=== PATIENT | female | born 1940 | race Caucasian/White ===

== ENCOUNTER 2017-07-01 17:06 | Inpatient (IN) | payer MEDICARE ==
[2017-07-01] MEDS ORDERED: Sodium Chloride 0.9% 10 ML Syringe FLUSH PRN (17:34)
[2017-07-01] MEDS ORDERED: Aspirin 81 MG Tab.Chew PO ONE (17:35)
--- NOTE | 2017-07-01 17:36 | EDM.PDOC ---
ED HPI GENERAL MEDICAL PROBLEM - General Chief Complaint: Chest Pain Stated Complaint: CHEST & LOWER BACK PAIN Time Seen by Provider: 07/01/17 17:30 Source of Information: Reports: Patient, Family History Limitations: Reports: Other (dementia) - History of Present Illness INITIAL COMMENTS - FREE TEXT/NARRATIVE: Yeny presents today with complaints of chest pain and low back pain all of a sudden while going for a walk and arriving at home today around 1500. Chest Pain Score (Numeric/FACES): 8 - Related Data Allergies Allergy/AdvReac Type Severity Reaction Status Date / Time No Known Allergies Allergy Verified 07/01/17 17:19 Home Meds: Home Meds Aspirin [Halfprin] 81 mg PO DAILY 07/01/17 [History] Ca Carbonate/Vitamin D3/Vit K [Calcium + D Soft Chewable Tab] 1 tab PO DAILY [History] Calcium Carb & Citrate/Vit D3 [Citracal + D ER] 1 tab PO DAILY 07/01/17 [History ] Cholecalciferol (Vitamin D3) [Vitamin D3] 1,000 unit PO DAILY 07/01/17 [History] Lisinopril [Lisinopril] 10 mg PO DAILY 07/01/17 [History] Magnesium Oxide 400 mg PO DAILY 07/01/17 [History] Memantine HCl [Memantine HCl] 10 mg PO BID 07/01/17 [History] Raloxifene [Evista] 60 mg PO DAILY 07/01/17 [History] atorvaSTATin Calcium [Atorvastatin Calcium] 80 mg PO BEDTIME 07/01/17 [History] Past Medical History HEENT History: Reports: Impaired Vision Cardiovascular History: Reports: High Cholesterol, Hypertension 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: Musculoskeletal History: Reports: Osteoporosis Neurological History: Reports: Migraines Psychiatric History: Reports: Dementia - Infectious Disease History Infectious Disease History: Reports: Chicken Pox, Measles, Mumps, Shingles - Past Surgical History Oncologic Surgical History: Reports: Lumpectomy Other Oncologic Surgeries/Procedures: left lumpectomy Social & Family History - Tobacco Use Smoking Status *Q: Never Smoker - Caffeine Use Caffeine Use: Reports: Coffee - Recreational Drug Use Recreational Drug Use: No ED ROS GENERAL - Review of Systems Review Of Systems: See Below Constitutional: Denies: Fever, Chills, Malaise, Weakness HEENT: Reports: No Symptoms Respiratory: Denies: Shortness of Breath, Wheezing, Cough, Sputum, Hemoptysis Cardiovascular: Reports: Chest Pain, Dyspnea on Exertion. Denies: Edema, Lightheadedness, Palpitations, PND, Syncope Endocrine: Reports: No Symptoms GI/Abdominal: Reports: No Symptoms : Reports: No Symptoms Musculoskeletal: Denies: Joint Pain, Joint Swelling, Muscle Pain, Muscle Stiffness Skin: Reports: No Symptoms Neurological: Reports: Other (She does have a history of dementia according to her . ). Denies: Confusion, Numbness Psychiatric: Reports: No Symptoms Hematologic/Lymphatic: Reports: No Symptoms Immunologic: Reports: No Symptoms ED EXAM, GENERAL - Physical Exam Exam: See Below Free Text/Narrative:: Yeny presents today with complaints of acute chest pain after going for a walk with her . She reports going for a walk with her and developing sudden chest pain at 1500. She went into the house and sat down, the chest pain resolved. Her then brought her to the ER. Exam Limited By: No Limitations General Appearance: Alert, WD/WN, No Apparent Distress Eye Exam: Bilateral Eye: EOMI, Normal Inspection, PERRL Ears: Normal External Exam, Normal Canal, Hearing Grossly Normal, Normal TMs Ear Exam: Bilateral Ear: Auricle Normal, Canal Normal, TM normal Nose: Normal Inspection Throat/Mouth: Normal Inspection, Normal Lips, Normal Oropharynx, Normal Voice, No Airway Compromise Head: Atraumatic, Normocephalic Neck: Normal Inspection, Supple, Non-Tender, Full Range of Motion. No: Lymphadenopathy (R), Lymphadenopathy (L) Respiratory/Chest: No Respiratory Distress, Lungs Clear, Normal Breath Sounds, No Accessory Muscle Use, Chest Non-Tender Cardiovascular: Normal Peripheral Pulses, Regular Rate, Rhythm, No Edema, No Murmur Peripheral Pulses: 2+: Radial (L), Radial (R), Dorsalis Pedis (L), Dorsalis Pedis (R) GI/Abdominal: Normal Bowel Sounds, Soft, Non-Tender, No Distention, No Mass Back Exam: Normal Inspection, Full Range of Motion. No: CVA Tenderness (R), CVA Tenderness (L) Extremities: Normal Inspection, Normal Range of Motion, Non-Tender, No Pedal Edema, Normal Capillary Refill Neurological: Alert, CN II-XII Intact, Normal Gait, Normal Reflexes, No Motor/ Sensory Deficits, Memory Loss Recent Events, Other (history of dementia, alert to self and situation, not date or time. ) Psychiatric: Normal Affect, Normal Mood, Other (Cooperative) Skin Exam: Warm, Dry, Intact, No Rash, Other (flushed to the face) Lymphatic: No Adenopathy Course - Vital Signs Last Recorded V/S: Last Vital Signs Temp 38.0 C 07/01/17 17:25 Pulse 83 07/01/17 22:28 Resp 17 07/01/17 22:28 BP 175/89 H 07/01/17 22:28 Pulse Ox 95 07/01/17 22:28 - Orders/Labs/Meds Orders: Active Orders 24 hr Category Date Time Status EKG Documentation Completion [RC] ASDIRECTED Care 07/01/17 17:34 Active Ang Chest [CT] Stat Exams 07/01/17 19:11 Taken Chest 1V Frontal [CR] Stat Exams 07/01/17 17:34 Taken LACTIC ACID [CHEM] Stat Lab 07/01/17 22:15 Ordered Iopamidol [Isovue-370 (76%)] Med 07/01/17 19:30 Active 100 ml IV . DIRECTED Sodium Chloride 0.9% [Normal Saline] 100 ml Med 07/01/17 19:30 Active IV ASDIRECTED Sodium Chloride 0.9% [Saline Flush] Med 07/01/17 17:34 Active 10 ml FLUSH ASDIRECTED PRN Saline Lock Insert [OM.PC] Routine Oth 07/01/17 17:34 Ordered EKG 12 Lead [EK] Routine Ther 07/01/17 17:34 Ordered Medication Orders Sodium Chloride (Normal Saline) 100 mls @ 3.5 mls/sec IV ASDIRECTED NATACHA Last Admin: 07/01/17 19:47 Dose: 4 mls/sec Iopamidol (Isovue-370 (76%)) 100 ml IV . DIRECTED NATACHA Last Admin: 07/01/17 19:47 Dose: 100 ml Sodium Chloride (Saline Flush) 10 ml FLUSH ASDIRECTED PRN PRN Reason: Keep Vein Open Last Admin: 07/01/17 17:40 Dose: 10 ml Labs: Laboratory Tests 07/01/17 07/01/17 07/01/17 Range/Units 17:46 17:46 18:28 WBC 19.0 H (4.5-11.0) K/uL RBC 4.69 (3.30-5.50) M/uL Hgb 12.9 (12.0-15.0) g/dL Hct 39.7 (36.0-48.0) % MCV 85 (80-98) fL MCH 28 (27-31) pg MCHC 33 (32-36) % Plt Count 300 (150-400) K/uL Neut % (Auto) 83 H (36-66) % Lymph % (Auto) 10 L (24-44) % [place] % (Auto) 7 H (2-6) % Eos % (Auto) 0 L (2-4) % Baso % (Auto) 0 (0-1) % D-Dimer, Quantitative 497 H (0.0-400.0) ng/mL Sodium 137 L (140-148) mmol/L Potassium 3.8 (3.6-5.2) mmol/L Chloride 103 (100-108) mmol/L Carbon Dioxide 22 (21-32) mmol/L Anion Gap 15.8 H (5.0-14.0) mmol/L BUN 20 H (7-18) mg/dL Creatinine 0.8 (0.6-1.0) mg/dL Est Cr Clr Drug Dosing 56.00 mL/min Estimated GFR (MDRD) > 60 (>60) Glucose 128 H (74-106) mg/dL Calcium 8.3 L (8.5-10.1) mg/dL Total Bilirubin 0.8 (0.2-1.0) mg/dL AST 26 (15-37) U/L ALT 33 (12-78) U/L Alkaline Phosphatase 81 (46-116) U/L Troponin I 0.039 (0.000-0.056) ng/mL Total Protein 6.9 (6.4-8.2) g/dL Albumin 3.7 (3.4-5.0) g/dL Globulin 3.2 (2.3-3.5) g/dL Albumin/Globulin Ratio 1.2 (1.2-2.2) Urine Color Urine Appearance Urine pH (4.5-8.0) Ur Specific [place] (1.008-1.030) Urine Protein (NEGATIVE) mg/dL Urine Glucose (UA) (NEGATIVE) mg/dL Urine Ketones (NEGATIVE) mg/dL Urine Occult Blood (NEGATIVE) Urine Nitrite (NEGATIVE) Urine Bilirubin (NEGATIVE) Urine Urobilinogen (NORMAL) mg/dL Ur Leukocyte Esterase (NEGATIVE) Urine RBC (0-5) Urine WBC (0-5) Ur Epithelial Cells Amorphous Sediment Urine Bacteria Urine Mucus 07/01/17 07/01/17 Range/Units 18:38 21:05 WBC (4.5-11.0) K/uL RBC (3.30-5.50) M/uL Hgb (12.0-15.0) g/dL Hct (36.0-48.0) % MCV (80-98) fL MCH (27-31) pg MCHC (32-36) % Plt Count (150-400) K/uL Neut % (Auto) (36-66) % Lymph % (Auto) (24-44) % [place] % (Auto) (2-6) % Eos % (Auto) (2-4) % Baso % (Auto) (0-1) % D-Dimer, Quantitative (0.0-400.0) ng/mL Sodium (140-148) mmol/L Potassium (3.6-5.2) mmol/L Chloride (100-108) mmol/L Carbon Dioxide (21-32) mmol/L Anion Gap (5.0-14.0) mmol/L BUN (7-18) mg/dL Creatinine (0.6-1.0) mg/dL Est Cr Clr Drug Dosing mL/min Estimated GFR (MDRD) (>60) Glucose (74-106) mg/dL Calcium (8.5-10.1) mg/dL Total Bilirubin (0.2-1.0) mg/dL AST (15-37) U/L ALT (12-78) U/L Alkaline Phosphatase (46-116) U/L Troponin I 0.046 (0.000-0.056) ng/mL Total Protein (6.4-8.2) g/dL Albumin (3.4-5.0) g/dL Globulin (2.3-3.5) g/dL Albumin/Globulin Ratio (1.2-2.2) Urine Color Yellow Urine Appearance Clear Urine pH 6.5 (4.5-8.0) Ur Specific [place] 1.010 (1.008-1.030) Urine Protein Negative (NEGATIVE) mg/dL Urine Glucose (UA) Normal (NEGATIVE) mg/dL Urine Ketones Negative (NEGATIVE) mg/dL Urine Occult Blood Negative (NEGATIVE) Urine Nitrite Negative (NEGATIVE) Urine Bilirubin Negative (NEGATIVE) Urine Urobilinogen Normal (NORMAL) mg/dL Ur Leukocyte Esterase Negative (NEGATIVE) Urine RBC 0-5 (0-5) Urine WBC 5-10 H (0-5) Ur Epithelial Cells Rare Amorphous Sediment Few Urine Bacteria Rare Urine Mucus Few Lab work reviewed. Will complete d-dimer, if positive will do CT. Patient and her in agreement with plan. Meds: Medications Generic Name Dose Route Start Last Admin Trade Name Freq PRN Reason Stop Dose Admin Sodium Chloride 100 mls @ 3.5 mls/sec 07/01/17 19:30 07/01/17 19:47 Normal Saline IV 4 mls/sec ASDIRECTED NATACHA Administration Iopamidol 100 ml 07/01/17 19:30 07/01/17 19:47 Isovue-370 (76%) IV 100 ml . DIRECTED NATACHA Administration Sodium Chloride 10 ml 07/01/17 17:34 07/01/17 17:40 Saline Flush FLUSH 10 ml ASDIRECTED PRN Administration Keep Vein Open Discontinued Medications Generic Name Dose Route Start Last Admin Trade Name Freq PRN Reason Stop Dose Admin Aspirin 324 mg 07/01/17 17:35 07/01/17 17:38 Aspirin PO 07/01/17 17:36 324 mg ONETIME ONE Administration Aspirin Confirm 07/01/17 17:40 07/01/17 18:55 Aspirin Administered 07/01/17 17:41 Not Given Dose 81 mg .ROUTE .[facility] - Radiology Interpretation Free Text/Narrative:: Chest x-ray reviewed, wet read, no acute findings. CT Results Date: 07/01/17 (No pulmonary embolism or other acute intrathoracic abnormality identified. 1.3cm left lung nodule in the lingula. Follow up per Fleischner Society guidelines suggested. ) - Re-Assessments/Exams Free Text/Narrative Re-Assessment/Exam: 07/01/17 19:12 D-dimer elevated, will complete CT of chest with PE protocol. Patient and her in agreement with plan. 07/01/17 21:06 Patient and her provided CT report results, will complete second troponin. 07/01/17 21:56 Repeat troponin 0.046, will discuss case with Dr. Mon. Patient and her notified. 07/01/17 22:[address] Mon, patient will be admitted for atypical chest pain , leukocytosis Departure - Departure Time of Disposition: 22:40 Disposition: Admitted As Inpatient 67 Condition: Fair Clinical Impression: Atypical chest pain, Leukocytosis Referrals: Alexandru Perez MD [Primary Care Provider] - Forms: ED Department Discharge - My Orders Last 24 Hours: My Active Orders 07/01/17 17:34 EKG Documentation Completion [RC] ASDIRECTED Chest 1V Frontal [CR] Stat Sodium Chloride 0.9% [Saline Flush] 10 ml FLUSH ASDIRECTED PRN Saline Lock Insert [OM.PC] Routine EKG 12 Lead [EK] Routine 07/01/17 19:11 Ang Chest [CT] Stat 07/01/17 19:30 Iopamidol [Isovue-370 (76%)] 100 ml IV . DIRECTED Sodium Chloride 0.9% [Normal Saline] 100 ml IV ASDIRECTED 07/01/17 22:15 LACTIC ACID [CHEM] Stat - Assessment/Plan Last 24 Hours: My Active Orders 07/01/17 17:34 EKG Documentation Completion [RC] ASDIRECTED Chest 1V Frontal [CR] Stat Sodium Chloride 0.9% [Saline Flush] 10 ml FLUSH ASDIRECTED PRN Saline Lock Insert [OM.PC] Routine EKG 12 Lead [EK] Routine 07/01/17 19:11 Ang Chest [CT] Stat 07/01/17 19:30 Iopamidol [Isovue-370 (76%)] 100 ml IV . DIRECTED Sodium Chloride 0.9% [Normal Saline] 100 ml IV ASDIRECTED 07/01/17 22:15 LACTIC ACID [CHEM] Stat
[2017-07-01] MEDS ORDERED: Aspirin 81 MG Tab.Chew ONE (17:40)
[2017-07-01] MEDS ORDERED: Sodium Chloride 0.9% 100 ML IV SCH (19:30)
[2017-07-01] MEDS ORDERED: Iopamidol 755 Mg/ML 100 ML Bottle IV SCH (19:30)
--- NOTE | 2017-07-01 22:54 | PCM.HP ---
H&P History of Present Illness - General Date of Service: 07/01/17 Source of Information: Patient, EMS, Family History Limitations: Reports: No Limitations - History of Present Illness Initial Comments - Free Text/Narative: 77-year-old female with past medical history of hypertension, hyperlipidemia, Alzheimer's disease, previous history of breast cancer, hypomagnesemia came to the clinic with a complaining of chest pain. Patient reports that chest pain started around 3:30 PM and lasted for 2 hours. Patient reports that pain is squeezing type 3-4/10 in intensity no radiation, decreased with rest increases with activity. Patient came to the ED and received aspirin 325 mg which subsided the chest pain. Patient denies any previous history of CAD. Patient recently had a office visit with PCP and her blood pressure medication lisinopril increased with the concerns of high blood pressure and received steroid knee injection for chronic left knee osteoarthritis. Patient denies any complications of steroid injection. Patient denies any recent fever, sick contacts. Patient denies any dyspepsia, heartburn, acid reflex and no changes in the medication. Patient at present denies any chest pain. Denies any previous history of blood clots. Patient lab workup showed a WBC elevated with a lactic acid 2.2. Patient to CT chest did not show any embolism and no infective signs are noted. Patient is a full code. Patient received IV fluid supplementation and aspirin in the ED. Denies any skin rash, morning stiffness, other joint pains. Patient denies any recent tick bites. Other review of systems are not significant Chest Pain Score (Numeric/FACES): 8 - Related Data Allergies/Adverse Reactions: Allergies Allergy/AdvReac Type Severity Reaction Status Date / Time No Known Allergies Allergy Verified 07/01/17 17:19 Home Medications: Home Meds Aspirin [Halfprin] 81 mg PO DAILY 07/01/17 [History] Ca Carbonate/Vitamin D3/Vit K [Calcium + D Soft Chewable Tab] 1 tab PO DAILY [History] Calcium Carb & Citrate/Vit D3 [Citracal + D ER] 1 tab PO DAILY 07/01/17 [History ] Cholecalciferol (Vitamin D3) [Vitamin D3] 1,000 unit PO DAILY 07/01/17 [History] Lisinopril [Lisinopril] 10 mg PO DAILY 07/01/17 [History] Magnesium Oxide 400 mg PO DAILY 07/01/17 [History] Memantine HCl [Memantine HCl] 10 mg PO BID 07/01/17 [History] Raloxifene [Evista] 60 mg PO DAILY 07/01/17 [History] atorvaSTATin Calcium [Atorvastatin Calcium] 80 mg PO BEDTIME 07/01/17 [History] Past Medical History HEENT History: Reports: Impaired Vision Cardiovascular History: Reports: High Cholesterol, Hypertension 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: Musculoskeletal History: Reports: Osteoporosis Neurological History: Reports: Migraines Psychiatric History: Reports: Dementia - Infectious Disease History Infectious Disease History: Reports: Chicken Pox, Measles, Mumps, Shingles - Past Surgical History Oncologic Surgical History: Reports: Lumpectomy Other Oncologic Surgeries/Procedures: left lumpectomy Social & Family History - Tobacco Use Smoking Status *Q: Never Smoker - Caffeine Use Caffeine Use: Reports: Coffee - Recreational Drug Use Recreational Drug Use: No H&P Review of Systems - Review of Systems: Review Of Systems: See Below General: Denies: Fever, Chills, Malaise HEENT: Denies: Contact Lenses, Dysphasia Pulmonary: Denies: Shortness of Breath, Wheezing, Pleuritic Chest Pain, Cough, Sputum, Hemoptysis Cardiovascular: Reports: Chest Pain. Denies: Palpitations, Dyspnea on Exertion , Orthopnea, PND, Edema, Lightheadedness, Syncope, Claudication, Blood Pressure Problem Gastrointestinal: Denies: Abdominal Pain, Anorexia, Black Stool Genitourinary: Denies: Dysuria, Frequency, Burning Musculoskeletal: Denies: Neck Pain, Shoulder Pain, Arm Pain Skin: Denies: Cyanosis, Jaundice Psychiatric: Denies: Confusion, Depression, Mood Lability Neurological: Denies: Confusion, Dizziness, Headache Hematologic/Lymphatic: Denies: Anemia, Easy Bleeding Exam - Exam Exam: See Below - Vital Signs Vital Signs: Last Vital Signs Temp 38.0 C 07/01/17 17:25 Pulse 83 07/01/17 22:28 Resp 17 07/01/17 22:28 BP 175/89 H 07/01/17 22:28 Pulse Ox 95 07/01/17 22:28 Weight: 80.286 kg - Exam General: Alert, Oriented HEENT: PERRLA, Conjunctiva Clear Neck: Supple, Trachea Midline Lungs: Clear to Auscultation, Normal Respiratory Effort. No: Decreased Breath Sounds Cardiovascular: Regular Rate, Regular Rhythm GI/Abdominal Exam: Normal Bowel Sounds, Soft, Non-Tender, No Organomegaly Extremities: Normal Inspection, Normal Range of Motion, Non-Tender, No Pedal Edema. No: Pedal Edema, Joint Swelling, Arm Pain Skin: Warm, Dry, Intact Neuro Extensive - Mental Status: Alert, Oriented x3 - Patient Data Lab Results Last 24 hrs: Laboratory Results - last 24 hr 07/01/17 07/01/17 07/01/17 Range/Units 17:46 17:46 18:28 WBC 19.0 H (4.5-11.0) K/uL RBC 4.69 (3.30-5.50) M/uL Hgb 12.9 (12.0-15.0) g/dL Hct 39.7 (36.0-48.0) % MCV 85 (80-98) fL MCH 28 (27-31) pg MCHC 33 (32-36) % Plt Count 300 (150-400) K/uL Neut % (Auto) 83 H (36-66) % Lymph % (Auto) 10 L (24-44) % [place] % (Auto) 7 H (2-6) % Eos % (Auto) 0 L (2-4) % Baso % (Auto) 0 (0-1) % D-Dimer, Quantitative 497 H (0.0-400.0) ng/mL Sodium 137 L (140-148) mmol/L Potassium 3.8 (3.6-5.2) mmol/L Chloride 103 (100-108) mmol/L Carbon Dioxide 22 (21-32) mmol/L Anion Gap 15.8 H (5.0-14.0) mmol/L BUN 20 H (7-18) mg/dL Creatinine 0.8 (0.6-1.0) mg/dL Est Cr Clr Drug Dosing 56.00 mL/min Estimated GFR (MDRD) > 60 (>60) Glucose 128 H (74-106) mg/dL Lactic Acid (0.4-2.0) mmol/L Calcium 8.3 L (8.5-10.1) mg/dL Total Bilirubin 0.8 (0.2-1.0) mg/dL AST 26 (15-37) U/L ALT 33 (12-78) U/L Alkaline Phosphatase 81 (46-116) U/L Troponin I 0.039 (0.000-0.056) ng/mL Total Protein 6.9 (6.4-8.2) g/dL Albumin 3.7 (3.4-5.0) g/dL Globulin 3.2 (2.3-3.5) g/dL Albumin/Globulin Ratio 1.2 (1.2-2.2) Urine Color Urine Appearance Urine pH (4.5-8.0) Ur Specific [place] (1.008-1.030) Urine Protein (NEGATIVE) mg/dL Urine Glucose (UA) (NEGATIVE) mg/dL Urine Ketones (NEGATIVE) mg/dL Urine Occult Blood (NEGATIVE) Urine Nitrite (NEGATIVE) Urine Bilirubin (NEGATIVE) Urine Urobilinogen (NORMAL) mg/dL Ur Leukocyte Esterase (NEGATIVE) Urine RBC (0-5) Urine WBC (0-5) Ur Epithelial Cells Amorphous Sediment Urine Bacteria Urine Mucus 07/01/17 07/01/17 07/01/17 Range/Units 18:38 21:05 22:15 WBC (4.5-11.0) K/uL RBC (3.30-5.50) M/uL Hgb (12.0-15.0) g/dL Hct (36.0-48.0) % MCV (80-98) fL MCH (27-31) pg MCHC (32-36) % Plt Count (150-400) K/uL Neut % (Auto) (36-66) % Lymph % (Auto) (24-44) % [place] % (Auto) (2-6) % Eos % (Auto) (2-4) % Baso % (Auto) (0-1) % D-Dimer, Quantitative (0.0-400.0) ng/mL Sodium (140-148) mmol/L Potassium (3.6-5.2) mmol/L Chloride (100-108) mmol/L Carbon Dioxide (21-32) mmol/L Anion Gap (5.0-14.0) mmol/L BUN (7-18) mg/dL Creatinine (0.6-1.0) mg/dL Est Cr Clr Drug Dosing mL/min Estimated GFR (MDRD) (>60) Glucose (74-106) mg/dL Lactic Acid 2.2 H (0.4-2.0) mmol/L Calcium (8.5-10.1) mg/dL Total Bilirubin (0.2-1.0) mg/dL AST (15-37) U/L ALT (12-78) U/L Alkaline Phosphatase (46-116) U/L Troponin I 0.046 (0.000-0.056) ng/mL Total Protein (6.4-8.2) g/dL Albumin (3.4-5.0) g/dL Globulin (2.3-3.5) g/dL Albumin/Globulin Ratio (1.2-2.2) Urine Color Yellow Urine Appearance Clear Urine pH 6.5 (4.5-8.0) Ur Specific [place] 1.010 (1.008-1.030) Urine Protein Negative (NEGATIVE) mg/dL Urine Glucose (UA) Normal (NEGATIVE) mg/dL Urine Ketones Negative (NEGATIVE) mg/dL Urine Occult Blood Negative (NEGATIVE) Urine Nitrite Negative (NEGATIVE) Urine Bilirubin Negative (NEGATIVE) Urine Urobilinogen Normal (NORMAL) mg/dL Ur Leukocyte Esterase Negative (NEGATIVE) Urine RBC 0-5 (0-5) Urine WBC 5-10 H (0-5) Ur Epithelial Cells Rare Amorphous Sediment Few Urine Bacteria Rare Urine Mucus Few Result Diagrams: 07/02/17 05:55 07/02/17 05:55 *Q Meaningful Use (ADM) - VTE *Q VTE Criteria *Q: - Stroke *Q Stroke Criteria *Q: - AMI *Q AMI Criteria *Q: - Problem List (1) Elevated lactic acid level SNOMED Code(s): 2054542 ICD Code: R79.89 - OTHER SPECIFIED ABNORMAL FINDINGS OF BLOOD CHEMISTRY Status: Acute Current Visit: Yes (2) Hyperlipemia SNOMED Code(s): 01178225 ICD Code: E78.5 - HYPERLIPIDEMIA, UNSPECIFIED Status: Acute Current Visit : Yes (3) Alzheimer disease SNOMED Code(s): 93414236 ICD Code: G30.9 - ALZHEIMER'S DISEASE, UNSPECIFIED Status: Acute Current Visit: Yes (4) Hypomagnesemia SNOMED Code(s): 036733486 ICD Code: E83.42 - HYPOMAGNESEMIA Status: Acute Current Visit: Yes (5) Atypical chest pain SNOMED Code(s): 364317621 ICD Code: R07.89 - OTHER CHEST PAIN Status: Acute Current Visit: Yes (6) Leukocytosis SNOMED Code(s): 234979821 ICD Code: D72.829 - ELEVATED WHITE BLOOD CELL COUNT, UNSPECIFIED Status: Acute Current Visit: Yes (7) Essential hypertension SNOMED Code(s): 95661337 ICD Code: I10 - ESSENTIAL (PRIMARY) HYPERTENSION Status: Chronic Current Visit: No Problem List Initiated/Reviewed/Updated: Yes Orders Last 24hrs: Active Orders 24 hr Category Date Time Status EKG Documentation Completion [RC] ASDIRECTED Care 07/01/17 17:34 Active Ang Chest [CT] Stat Exams 07/01/17 19:11 Taken Chest 1V Frontal [CR] Stat Exams 07/01/17 17:34 Taken Iopamidol [Isovue-370 (76%)] Med 07/01/17 19:30 Active 100 ml IV . DIRECTED Sodium Chloride 0.9% [Normal Saline] 100 ml Med 07/01/17 19:30 Active IV ASDIRECTED Sodium Chloride 0.9% [Saline Flush] Med 07/01/17 17:34 Active 10 ml FLUSH ASDIRECTED PRN Saline Lock Insert [OM.PC] Routine Oth 07/01/17 17:34 Ordered EKG 12 Lead [EK] Routine Ther 07/01/17 17:34 Ordered Medication Orders Sodium Chloride (Normal Saline) 100 mls @ 3.5 mls/sec IV ASDIRECTED NATACHA Last Admin: 07/01/17 19:47 Dose: 4 mls/sec Iopamidol (Isovue-370 (76%)) 100 ml IV . DIRECTED NATACHA Last Admin: 07/01/17 19:47 Dose: 100 ml Sodium Chloride (Saline Flush) 10 ml FLUSH ASDIRECTED PRN PRN Reason: Keep Vein Open Last Admin: 07/01/17 17:40 Dose: 10 ml Assessment/Plan Comment:: 77-year-old female with past medical history of hypertension, hyperlipidemia, Alzheimer's disease, hypomagnesemia came to the ED with a complaining of chest pain. Patient WBC count and lactic acid is elevated and treated with levofloxacin antibiotics and admitted to the hospital for further management (1) Elevated lactic acid level (5) Atypical chest pain (6) Leukocytosis Patient came with a complaint of chest pain, atypical, unknown etiology. 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
[2017-07-01] MEDS ORDERED: Promethazine 25 MG Tab PO PRN (23:18)
[2017-07-01] MEDS ORDERED: Acetaminophen/HYDROcodone 325-5 MG Tab PO PRN (23:18)
[2017-07-01] MEDS ORDERED: Levofloxacin/Dextrose 5%-Water 750 MG in Premix Bag 1 BAG IV SCH (23:30)
[2017-07-02] MEDS: Acetaminophen 325 MG Tab PO PRN ×2 (00:34→11:15)
[2017-07-02] MEDS ORDERED: Enoxaparin 40 MG/0.4 ML Syringe SUBCUT SCH (09:00)
--- NOTE | 2017-07-02 09:36 | CR ---
Chest 1V Frontal FINDINGS: The heart and vascular structures are normal in appearance. No infiltrates or effusions are demonstrated. The skeletal structures are unremarkable. IMPRESSION: Negative exam.
--- NOTE | 2017-07-02 12:35 | PCM.DCSUM1 ---
Discharge Summary - Hospital Course Brief History: 77-year-old female with history of hypertension and mild dementia who presented with chest pain and back pain and was admitted for workup /management after workup revealed leukocytosis and mild elevation of lactic acid. - Discharge Data Discharge Date: 07/02/17 Discharge Disposition: Home, Self-Care 01 Condition: Good - Discharge Diagnosis/Problem(s) (1) Atypical chest pain SNOMED Code(s): 217094242 ICD Code: R07.89 - OTHER CHEST PAIN Status: Acute (2) Leukocytosis SNOMED Code(s): 398382221 ICD Code: D72.829 - ELEVATED WHITE BLOOD CELL COUNT, UNSPECIFIED Status: Acute Qualifiers: Leukocytosis type: unspecified Qualified Code(s): D72.829 - Elevated white blood cell count, unspecified - Patient Summary/Data Hospital Course: Yeny presented to the emergency room with chest tightness and upper back pain. Workup in the emergency room was reassuring including troponin, EKG and additional laboratory work though white blood cell count was elevated at 19, 000. She was admitted overnight for further workup and management. Serial troponin levels were in the normal range. Chest x-ray and CT pulmonary angiogram in the emergency room were unremarkable. She has been symptom-free overnight. No abnormalities were noted on telemetry. The morning after admission she remains pain-free and a third troponin level remains normal. She feels well and like she is back to her usual self. She was able to ambulate more than 300 feet with physical therapy and did not develop any chest pain or tightness. She was able to climb up and down stairs without any difficulty. Her white blood cell count has improved and is down to 15,000 today. The exact cause for her pain is not entirely clear at this point. Bronchospasm or possibly a powerful thoracic muscle spasm could be considered. She has no pain at this time. Her vital signs have all been stable. The description of her pain in the story seemed very atypical for cardiac pain. She is a low risk patient for a cardiac issues. This point we have elected to forego any further testing unless she has recurrence of her symptoms. She will be discharged home with her . She was advised to seek medical attention if she has additional episodes of pain. - Patient Instructions Diet: Regular Diet as Tolerated Activity: As Tolerated Showering/Bathing: May Shower Notify Provider of: Fever, Increased Pain Other/Special Instructions: 1. You were in the hospital for management of atypical chest pain. There was no evidence of heart attack or blood clot in the lungs. I suspect the pain was possibly caused by a severe muscle spasm or possibly bronchospasm. At this point symptoms have completely resolved and workup in the hospital was unremarkable. I do not recommend any specific follow- up at this time but if symptoms return I would recommend additional evaluation. 2. Please continue your usual medications as previously prescribed. 3. Seek medical attention if you develop fever greater than 101, have return of your severe pain or you develop sudden onset of shortness of breath/difficulty breathing. - Discharge Plan Home Medications: Home Meds Aspirin [Halfprin] 81 mg PO DAILY 07/01/17 [History] Ca Carbonate/Vitamin D3/Vit K [Calcium + D Soft Chewable Tab] 1 tab PO DAILY [History] Calcium Carb & Citrate/Vit D3 [Citracal + D ER] 1 tab PO DAILY 07/01/17 [History ] Cholecalciferol (Vitamin D3) [Vitamin D3] 1,000 unit PO DAILY 07/01/17 [History] Lisinopril 10 mg PO DAILY 07/01/17 [History] Magnesium Oxide 400 mg PO DAILY 07/01/17 [History] Memantine HCl 10 mg PO BID 07/01/17 [History] Raloxifene [Evista] 60 mg PO DAILY 07/01/17 [History] atorvaSTATin Calcium [Atorvastatin Calcium] 80 mg PO BEDTIME 07/01/17 [History] Patient Handouts: Nonspecific Chest Pain, [id number] Referrals: Alexandru Perez MD [Primary Care Provider] - (f/u if symptoms return) - Patient Data Vitals - Most Recent: Last Vital Signs Temp 37.3 C 07/02/17 08:00 Pulse 99 07/02/17 10:00 Resp 20 07/02/17 10:00 BP 169/78 H 07/02/17 10:00 Pulse Ox 97 07/02/17 10:00 Weight - Most Recent: 80 kg I&O - Last 24 hours: Intake & Output 07/01/17 07/02/17 07/02/17 22:59 06:59 14:59 Intake Total 150 Output Total 600 750 Balance -450 -750 Lab Results - Last 24 hrs: Laboratory Results - last 24 hr 07/02/17 07/02/17 07/02/17 Range/Units 05:52 05:55 05:55 WBC 15.2 H (4.5-11.0) K/uL RBC 4.67 (3.30-5.50) M/uL Hgb 12.6 (12.0-15.0) g/dL Hct 39.2 (36.0-48.0) % MCV 84 (80-98) fL MCH 27 (27-31) pg MCHC 32 (32-36) % Plt Count 278 (150-400) K/uL Neut % (Auto) 79 H (36-66) % Lymph % (Auto) 13 L (24-44) % Barry % (Auto) 8 H (2-6) % Eos % (Auto) 0 L (2-4) % Baso % (Auto) 0 (0-1) % Sodium 141 (140-148) mmol/L Potassium 3.7 (3.6-5.2) mmol/L Chloride 108 (100-108) mmol/L Carbon Dioxide 23 (21-32) mmol/L Anion Gap 9.7 (5.0-14.0) mmol/L BUN 14 (7-18) mg/dL Creatinine 0.6 (0.6-1.0) mg/dL Est Cr Clr Drug Dosing 74.67 mL/min Estimated GFR (MDRD) > 60 (>60) Glucose 102 (74-106) mg/dL Calcium 8.4 L (8.5-10.1) mg/dL Total Bilirubin 0.8 (0.2-1.0) mg/dL AST 18 (15-37) U/L ALT 27 (12-78) U/L Alkaline Phosphatase 67 (46-116) U/L Troponin I 0.040 (0.000-0.056) ng/mL Total Protein 6.5 (6.4-8.2) g/dL Albumin 3.3 L (3.4-5.0) g/dL Globulin 3.2 (2.3-3.5) g/dL Albumin/Globulin Ratio 1.0 L (1.2-2.2) Med Orders - Current: Current Medications Acetaminophen (Tylenol) 650 mg PO Q4H PRN PRN Reason: Pain (Mild 1-3)/fever Last Admin: 10/23/17 11:15 Dose: 650 mg Hydrocodone Bitart/Acetaminophen ([place] 325-5 Mg) 1 tab PO Q4H PRN PRN Reason: Pain (moderate 4-6) Enoxaparin Sodium (Lovenox) 40 mg SUBCUT DAILY [facility] Last Admin: 07/02/17 08:58 Dose: 40 mg Levofloxacin/Dextrose 750 mg/ (Premix) 150 mls @ 100 mls/hr IV Q24H [facility] Last Admin: 07/02/17 00:27 Dose: 100 mls/hr Promethazine HCl (Phenergan) 25 mg PO Q6H PRN PRN Reason: Nausea able to take PO Senna/Docusate Sodium (Senna Plus) 1 tab PO BID PRN PRN Reason: Constipation Sodium Chloride (Saline Flush) 10 ml FLUSH ASDIRECTED PRN PRN Reason: Keep Vein Open Last Admin: 07/01/17 17:40 Dose: 10 ml Discontinued Medications Aspirin (Aspirin) 324 mg PO ONETIME ONE Stop: 07/01/17 17:36 Last Admin: 07/01/17 17:38 Dose: 324 mg Aspirin (Aspirin) Confirm Administered Dose 81 mg .ROUTE .STK-MED ONE Stop: 07/01/17 17:41 Last Admin: 07/01/17 18:55 Dose: Not Given Sodium Chloride (Normal Saline) 100 mls @ 3.5 mls/sec IV ASDIRECTED [facility] Last Admin: 07/01/17 19:47 Dose: 4 mls/sec Iopamidol (Isovue-370 (76%)) 100 ml IV . DIRECTED [facility] Last Admin: 07/01/17 19:47 Dose: 100 ml - Exam Quality Assessment: Denies: Supplemental Oxygen General: Reports: Alert, Cooperative, No Acute Distress Neck: Reports: Supple Lungs: Reports: Clear to Auscultation, Normal Respiratory Effort. Denies: Wheezing Cardiovascular: Reports: Regular Rate, Regular Rhythm, No Murmurs Back Exam: Reports: Full Range of Motion Extremities: No Pedal Edema Skin: Reports: Warm, Dry Psy/Mental Status: Reports: Alert, Normal Affect *Q Meaningful Use (DIS) - VTE *Q VTE Criteria *Q: - Stroke *Q Stroke Criteria *Q: - AMI *Q AMI Criteria *Q:
== END 2017-07-02 12:50 | disposition home or self-care (01) | DRG 556 ==
LOC: JP.ED 17:06 → JP.ICU 23:18 → JP.MS 07-02 13:00 → JP.ICU 07-02 13:06
PROVIDERS: ADMIT Family Medicine; ATTEND Internal Medicine
DX: M62.838 Other muscle spasm (principal); M54.9 Dorsalgia, unspecified; J98.01 Acute bronchospasm; R07.89 Other chest pain; D72.829 Elevated white blood cell count, unspecified; I10 Essential (primary) hypertension; G30.9 Alzheimer's disease, unspecified; F02.80 Dementia in other diseases classified elsewhere, unspecified severity, without behavioral disturbance, psychotic disturbance, mood disturbance, and anxiety; R79.89 Other specified abnormal findings of blood chemistry; E83.42 Hypomagnesemia; E78.5 Hyperlipidemia, unspecified; M81.0 Age-related osteoporosis without current pathological fracture; Z85.3 Personal history of malignant neoplasm of breast; M17.12 Unilateral primary osteoarthritis, left knee; H54.7 Unspecified visual loss; Z79.82 Long term (current) use of aspirin
CPT/HCPCS: 36415; 71010 ×2; 71275; 80053; 81001; 83605; 84484 ×2; 85025; 85379; 87040 ×2; 87086; 93005; 99285; A9270; J7030; J7050; Q9967; 83735; 93010; 97162-GP; 97530-GP; J1650; J1956